=== PATIENT | female | born 1980 | race Caucasian/White ===

== ENCOUNTER 2016-11-21 05:25 | Emergency (ER) | payer OTHER ==
[~2016-11-21] VITALS: Ht 157.5 cm; Wt 52.3 kg
[2016-11-21 05:30] VITALS: BP 114/69; PULSE 80; RESP 16; O2SAT 100
[2016-11-21] MEDS ORDERED: predniSONE 20 mg Tablet PO ONE (05:40)
--- NOTE | 2016-11-21 06:20 | ED.REPORT ---
HPI-General Illness Date of Service Nov 21, 2016 ED Provider: Armida Pruitt MD Patient is a 36 year old female who presents to the ED complaining of L eye redness onset today s/p having lash extensions placed last week. Associated symptoms include rash on her lower abdomen. She denies difficulty breathing, difficulty swallowing, tongue swelling, throat swelling, or any other symptoms. Nursing Notes Stated Complaint: ALLERGIC REACTION Chief Complaint: Allergic Reaction Nursing Notes Reviewed: Yes Allergies: Coded Allergies: Sulfa (Sulfonamide Antibiotics) (Verified Allergy, Unknown, 11/21/16) Uncoded Allergies: METAL (Allergy, Unknown, 11/21/16) Scheduled Prednisone (PredniSONE) 20 Mg Tablet 20 MG PO DAILY General Time Seen by MD: 05:39 Chief Complaint Allergic reaction Hx Obtained From: Patient Arrived By: Walk-in Sudden in Onset?: Yes Onset Occurred: 1 - 4 hours ago Symptom Duration: Since onset Similar Sx Previous: No Past Medical History Past Medical History None reported Past Surgical History None reported Smoking History Unknown if Ever Smoker Ambulatory Status Independent Review of Systems -dysphagia Full Review of Systems Eyes: Reports: Redness left Ears / Nose / Throat: Denies: Throat swelling, Tongue swelling Respiratory: Denies: Shortness of breath Skin: Reports Rash Complete sys rev & neg: except as marked. Physical Exam Vital Signs Vital Signs Date Time Temp Pulse Resp B/P Pulse Ox O2 Delivery O2 Flow Rate FiO2 11/21/16 06:52 87 16 103/65 100 11/21/16 05:30 36.9 80 16 114/69 100 Room Air Initial VS: Reviewed, Vital signs normal Neck: Supple, Non-tender, Full range of motion Skin: Warm, Dry Neurologic: Alert, Oriented, Nonfocal Psychiatric: Mood/affect normal, Behavior normal, Normal thought content General/Constitutional: Awake, Alert, No acute distress Head / Eyes: Atraumatic, Normocephalic Erythema along eyelids where lashes touch ENT: Atraumatic, Airway patent, Mucous membranes moist, Pharynx NL Respiratory / Chest: Atraumatic, Breath sounds NL, Breath sounds = bilat, No respiratory distress Cardiovascular: Heart rate NL, Regular rhythm, Heart sounds NL Abdomen: Soft, Non-tender Mild Erythema over abdomen, particularly in body folds Re-Eval/Medical Decision Time of Eval: 06:45 Re-Evaluation/Progress Note: Discussed plan for discharge. Patient understands and agrees with plan. All questions addressed at this time. Counseled Regarding: Diagnosis, Need for follow-up, When/why to return to ED Discharge & Departure Primary Impression: Allergic reaction Encounter type: initial encounter Qualified Code: T78.40XA - Allergy, unspecified, initial encounter Disposition: Home Discharge Condition All VS Reviewed: Yes Condition: Improved Additional Instructions: You are having an allergic reaction to the eyelashes - likley the glue. Please take 20mg prednisone for the next 3 days, if you are feeling better by the, stop. If you are still itchy, continue for another 2 days. Your prescription has been electronically sent to [facility]. No more false lashes for you. If you try other alternatives, use the adhesive/ chemical on your forarm first to make sure you don't react. You may find that you are more sensitive to all adhesives after this - tape, bandaids etc. Hopefully not, but be aware. Thanks for coming in today. I hope you feel better. Referrals: GABRIELLE HILTON (PCP) Vamsi Attestation Portions of this note were transcribed by Lizz Rutherford. I, Dr. Pruitt personally performed the history, physical exam and medical decision-making; I reviewed and confirmed the accuracy of the information in the transcribed note. Signed: Vamsi Mendenhall, 11/21/16 copies to: GABRIELLE HILTON Shawna L MD Nov 21, 2016 06:20 LIZZ RUTHERFORD Nov 21, 2016 06:39
[2016-11-21 06:52] VITALS: BP 103/65; PULSE 87; RESP 16; O2SAT 100
[2016-11-21] MEDS ORDERED: PRE20 PO (07:02)
[2016-11-21 07:08] VITALS: BP 103/65; PULSE 87; RESP 16; O2SAT 100
== END 2016-11-21 07:09 | disposition home or self-care (01) ==
LOC: SED 05:25
DX: T78.49XA Other allergy, initial encounter (principal); Y93.89 Activity, other specified; Y92.89 Other specified places as the place of occurrence of the external cause; Y99.8 Other external cause status; R21 Rash and other nonspecific skin eruption; Z88.2 Allergy status to sulfonamides